=== PATIENT | female | born 1975 ===

== ENCOUNTER 2022-10-08 09:14 | Observation (INO) | payer SELFPAY ==
[2022-10-08] MEDS ORDERED: Sodium Chloride 0.9% 20 ML SDV IV PRN (10:43)
[2022-10-08] MEDS ORDERED: Ondansetron 4 MG/2 ML SDV IVPUSH PRN (10:43)
[2022-10-08] MEDS ORDERED: Acetaminophen 325 MG Tab PO PRN (10:43)
[2022-10-08] MEDS ORDERED: Sodium Chloride 0.9% 2.5 ML Syringe FLUSH PRN (10:43)
[2022-10-08] MEDS ORDERED: Sodium Chloride 0.9% 10 ML Syringe FLUSH PRN (10:43)
[2022-10-08] MEDS ORDERED: LORazepam 1 MG Tab PO PRN (10:56)
[2022-10-08] MEDS ORDERED: LORazepam 2 MG/ML SDV IVPUSH ONE (10:57)
[2022-10-08 11:12] LABS: BASOPHILS PERCENT AUTO 0.3 % (0.0-1.5); EOSINOPHILS PERCENT AUTO 0.3 % (0.0-7.0); HEMOGLOBIN 13.8 g/dL (12.0-16.0); LYMPHOCYTES ABSOLUTE AUTO 0.7 K/uL (0.6-2.4); LYMPHOCYTES PERCENT AUTO 6.8 % (16.0-40.0); MEAN CORPUSCULAR HEMOGLOBIN 31.9 pg (27.0-32.0); MEAN CORPUSCULAR HGB CONC 34.5 g/dL (31.0-37.0); MEAN CORPUSCULAR VOLUME 92.4 fL (80.0-98.0); MONOCYTES ABSOLUTE AUTO 0.5 K/uL (0.0-0.8); MONOCYTES PERCENT AUTO 4.3 % (0.0-15.0); NEUTROPHILS ABSOLUTE AUTO 9.3 K/uL (1.4-5.7); NEUTROPHILS PERCENT AUTO 88.3 % (48.0-80.0); PLATELET COUNT,PLT 267 K/uL (150-400); RED BLOOD CELL COUNT 4.33 M/uL (4.30-5.90); WHITE BLOOD CELL COUNT,WBC 10.57 K/uL (4.0-11.0)
[2022-10-08 12:24] LABS: ACETAMINOPHEN <2.0 ug/mL; SALICYLATE 0.7 mg/dL (0.0-20.0)
[2022-10-08 12:26] LABS: ALANINE AMINOTRANSFERASE,ALT 19 IU/L (14-63); ALBUMIN 3.5 g/dL (3.4-5.0); ALKALINE PHOSPHATASE 57 U/L (46-116); ASPARTATE AMNIOTRANSFERASE,AST 17 IU/L (15-37); BILIRUBIN TOTAL 0.4 mg/dL (0.2-1.0); BLOOD UREA NITROGEN,BUN 13 mg/dL (7.0-18.0); CALCIUM 8.2 mg/dL (8.5-10.1); CARBON DIOXIDE,CO2 20.6 mmol/L (21.0-32.0); CHLORIDE,CL 106 mmol/L (98-107); CREATININE 0.9 mg/dL (0.6-1.0); GLUCOSE RANDOM 102 mg/dL (74-106); MAGNESIUM 1.6 mg/dL (1.8-2.4); PHOSPHORUS 2.6 mg/dL (2.6-4.7); POTASSIUM,K 4.2 mmol/L (3.5-5.1); PROTEIN TOTAL,TP 6.9 g/dL (6.4-8.2); SODIUM,NA 139 mmol/L (136-145)
[2022-10-08 12:27] LABS: ESTIMATED GFR 78 mL/min (>60)
[2022-10-08] MEDS: Sodium Chloride 0.9% 1,000 ML IV SCH ×2 (12:30→22:52)
[2022-10-08] MEDS: Thiamine 200 MG/2 ML MDV IVPUSH SCH (13:35)
[2022-10-08] MEDS: Folic Acid 1 MG/0.2 ML UD Syringe IV SCH (13:35)
[2022-10-08] MEDS ORDERED: Magnesium Sulfate/Water 2 GM in Premix Bag 1 BAG IV ONE (15:00)
[2022-10-08] MEDS ORDERED: QUEtiapine 25 MG Tab PO SCH (21:00)
[2022-10-08] MEDS ORDERED: fluvoxaMINE 50 MG Tab PO SCH (21:00)
[2022-10-09] MEDS: Folic Acid 1 MG/0.2 ML UD Syringe IV SCH (08:32)
[2022-10-09] MEDS: Thiamine 200 MG/2 ML MDV IVPUSH SCH (08:32)
[2022-10-09 10:57] LABS: MEAN CORPUSCULAR HEMOGLOBIN 31.5 pg (27.0-32.0); MEAN CORPUSCULAR HGB CONC 34.1 g/dL (31.0-37.0); MEAN CORPUSCULAR VOLUME 92.1 fL (80.0-98.0); MEAN PLATELET VOLUME 9.1 fL (7.40-12.00); RED BLOOD CELL COUNT 4.45 M/uL (4.30-5.90); WHITE BLOOD CELL COUNT,WBC 8.22 K/uL (4.0-11.0)
[2022-10-09 11:23] LABS: ALBUMIN 3.6 g/dL (3.4-5.0); BILIRUBIN TOTAL 0.6 mg/dL (0.2-1.0); CREATININE 0.9 mg/dL (0.6-1.0); EST CRCL DRUG DOSING (CG) 81.77 mL/min; POTASSIUM,K 3.9 mmol/L (3.5-5.1); PROTEIN TOTAL,TP 7.2 g/dL (6.4-8.2)
== END 2022-10-09 14:40 | disposition home or self-care (01) ==
LOC: INTOOBSV 09:14 → MW.ICU 09:14 → MW.MS 20:56
PROVIDERS: ADMIT Family Medicine; ATTEND Family Medicine
DX: T43.201A Poisoning by unspecified antidepressants, accidental (unintentional), initial encounter (principal); F10.10 Alcohol abuse, uncomplicated; Z79.899 Other long term (current) drug therapy; Z98.890 Other specified postprocedural states
CPT/HCPCS: 36415; 80053; 80143; 80179; 83735; 84100; 85025; 85027; 93005; 96361; 96365; 96372; 96375; G0378; G0379; J2060; J3411; J3475; J7030; J3490